=== PATIENT | female | born 1970 | race Caucasian/White ===

== ENCOUNTER 2017-05-31 10:44 | Emergency (ER) | payer OTHER ==
[~2017-05-31] VITALS: Ht 175.3 cm; Wt 67.0 kg
[2017-05-31] MEDS ORDERED: MOTRIN800 MG PO (12:03)
[2017-05-31] MEDS ORDERED: TRAMADOL HYDROC50 MG PO (12:03)
[2017-05-31 12:15] VITALS: BP 118/63
== END 2017-05-31 12:15 | disposition home or self-care (01) | DRG 605 ==
LOC: ED 10:44
DX: S80.02XA Contusion of left knee, initial encounter (principal); V28.0XXA Motorcycle driver injured in noncollision transport accident in nontraffic accident, initial encounter; Y92.488 Other paved roadways as the place of occurrence of the external cause; Y93.I9 Activity, other involving external motion